=== PATIENT | male | born 1950 | race Hispanic/Latino ===

== ENCOUNTER 2021-07-04 08:30 | Outpatient (CLI) | payer MEDICARE | END 2021-07-04 08:31 | disposition home or self-care (01) | LOC: CSHWCC 08:30 | PROVIDERS: ATTEND Nurse Practitioner Family | DX: T81.89XD Other complications of procedures, not elsewhere classified, subsequent encounter (principal) | CPT/HCPCS: 97139; 97605; G0463; 99203 ==

== ENCOUNTER 2021-07-08 13:48 | Outpatient (CLI) | payer MEDICARE | END 2021-07-08 13:49 | disposition home or self-care (01) | LOC: CSHWCC 13:48 | PROVIDERS: ATTEND Nurse Practitioner Family | DX: T81.89XD Other complications of procedures, not elsewhere classified, subsequent encounter (principal) | CPT/HCPCS: 97605 ==

== ENCOUNTER 2021-07-11 09:28 | Outpatient (CLI) | payer MEDICARE | END 2021-07-11 09:29 | disposition home or self-care (01) | LOC: CSHWCC 09:28 | PROVIDERS: ATTEND Nurse Practitioner Family | DX: T81.89XD Other complications of procedures, not elsewhere classified, subsequent encounter (principal) | CPT/HCPCS: 97605 ==

== ENCOUNTER 2021-07-15 10:56 | Outpatient (CLI) | payer MEDICARE | END 2021-07-15 10:57 | disposition home or self-care (01) | LOC: CSHWCC 10:56 | PROVIDERS: ATTEND Nurse Practitioner Family | DX: T81.89XD Other complications of procedures, not elsewhere classified, subsequent encounter (principal) | CPT/HCPCS: 11042; 97605 ==

== ENCOUNTER 2021-07-18 13:17 | Outpatient (CLI) | payer MEDICARE | END 2021-07-18 13:18 | disposition home or self-care (01) | LOC: CSHWCC 13:17 | PROVIDERS: ATTEND Nurse Practitioner Family | DX: T81.89XD Other complications of procedures, not elsewhere classified, subsequent encounter (principal) | CPT/HCPCS: 36416 ==

== ENCOUNTER 2021-07-22 13:32 | Outpatient (CLI) | payer MEDICARE | END 2021-07-22 13:33 | disposition home or self-care (01) | LOC: CSHWCC 13:32 | PROVIDERS: ATTEND Nurse Practitioner Family | DX: T81.89XD Other complications of procedures, not elsewhere classified, subsequent encounter (principal) | CPT/HCPCS: 97139; G0463; 99213 ==

== ENCOUNTER 2021-07-29 13:14 | Outpatient (CLI) | payer MEDICARE | END 2021-07-29 13:15 | disposition home or self-care (01) | LOC: CSHWCC 13:14 | PROVIDERS: ATTEND Nurse Practitioner Family | DX: T81.89XD Other complications of procedures, not elsewhere classified, subsequent encounter (principal) | CPT/HCPCS: 99213; G0463 ==